=== PATIENT | female | born 1985 | race Caucasian/White ===

== ENCOUNTER 2025-07-25 06:38 | Emergency (ER) | payer OTHER, SELFPAY ==
[2025-07-25 06:42] VITALS: BP 106/66
--- NOTE | 2025-07-25 09:10 | ED.GENMED ---
History of Present Illness
General
Chief Complaint: Oral/Mouth Problem
Source: patient
Time Seen by Provider: 07/25/25 08:54
History of Present Illness
History of Present Illness:
40-year-old female with history of anxiety and ADHD presents with several days worth of worsening right upper molar pain. She has been using Tylenol and ibuprofen [id number] without any significant relief. She is using oral gel and heating
pad. She plans on seeing a dental clinic tomorrow. She has a history of significant abscess and she does not want to develop into this. No neck pain trouble swallowing or breathing. No other complaints at this time
Past History
Past History
ED Past Medical History: None
ED Past Surgical History: None
Social History
Tobacco: Non-smoker
Alcohol: None
Drug: None
Personal:
Living: with family
Phy Exam
Physical Exam
Physical Exam:
General: Well-appearing female no acute respiratory distress
HEENT normal cephalic atraumatic no trismus or drooling no obvious facial swelling. Right maxillary third molar with large cavity minimal gingival tissue inflammation surrounding this. No fluctuance. Posterior pharynx is patent.
Course
Orders/Labs/Results
Orders:
Orders
07/25/25 09:09
Oxycodone/Acetaminophen [Percocet 5/325] 1 tablet PO NOW STA
Penicillin V Potassium [Pen Vk] 500 mg PO NOW STA
Vital Signs
Initial and Last Documented VS:
Initial Vital Signs
Temp Pulse Resp BP Pulse Ox
98.5 F 83 20 106/66 100
07/25/25 06:42 07/25/25 06:42 07/25/25 06:42 07/25/25 06:42 07/25/25 06:42
Last Documented Vital Signs
Temp Pulse Resp BP Pulse Ox
98.5 F 83 20 106/66 100
07/25/25 06:42 07/25/25 06:42 07/25/25 06:42 07/25/25 06:42 07/25/25 06:42
MDM/Problems Addressed
Differential Diagnosis Includes:
Dental pain. Consider underlying dental abscess. Nothing to drain at this point. She does have a large cavity in this tooth. Grdw-sex-ldfealy medications are not helping for pain. Will add penicillin and a limited supply of pain medicine until
she sees a dentist tomorrow. No intervention otherwise indicated. Stable for discharge
*Pulse Oximetry
SaO2: 100
Oxygen Mode of Delivery: Room air
Patient hypoxic: no
*Critical Care Note
Total Time (30-74mins, 75-104mins- exclusive of procedures): Not Applicable
ED Attending Note
-
Portions of this chart may have been created with voice recognition software.� Occasional wrong word or��sound alike� substitutions may have occurred due to the inherent limitations of voice recognition software.
Discharge Plan
Departure
Patient Disposition: Home (Routine Discharge)
Date of Disposition: 07/25/25
Time of Disposition: 09:12
Patient with high blood pressure during this ER visit?: No
Discharge Problem:
Pain, dental
Instructions: Dental Pain (DC)
Prescriptions:
New
penicillin V potassium 500 mg tablet
500 mg PO QID Qty: 27 0RF
oxycodone-acetaminophen [Percocet] 5-325 mg tablet
1 tab PO Q8H PRN (Reason: Pain) Qty: 7 0RF
No Action
escitalopram oxalate 10 MG tablet
10 mg PO HS
bupropion HCl 300 MG tablet extended release 24 hr
300 mg PO DAILY
clonazepam 1 MG tablet
1 mg PO DAILYPRN PRN (Reason: anxeity)
Patient Comments:
08/26/20-patient saw md yesterday, change in direction, max in a day 2mg, patient says md told she could take a half or whole tablet during the day as needed,
08/26/20- lasted filled 08/25/20 #50
acetaminophen 325 MG tablet
650 mg PO Q4HPRN PRN (Reason: mild pain)
multivitamin with folic acid [Tab-A-Comfort] 1 TABLET tablet
1 tab PO DAILY
ciprofloxacin HCl [Cipro] 500 MG tablet
500 mg PO BID Qty: 10 0RF
metronidazole 500 MG tablet
500 mg PO Q8 Qty: 15 0RF
hyoscyamine sulfate [Levsin] 0.125 MG tablet
0.125 mg PO Q6H PRN (Reason: spasms) Qty: 20 0RF
clonazepam 1 MG tablet
1 mg PO HS Qty: 1 0RF
Activity Restrictions/Additional Instructions:
Continue warm compresses and salt water rinses. Use antibiotic and prescribed pain medicine as needed for severe pain. Follow-up with dentist as planned otherwise return if worse
Interventions
Interventions:
*Risk Screen - Suicide Last Done: 07/25/25 06:42
*General Assessment Last Done: 07/25/25 06:42
*Neglect/Abuse Screening Last Done: 07/25/25 06:42
*ED- Fall Risk Assessment Last Done: 07/25/25 06:42
*ED COVID-19 Vaccine History Last Done: 07/25/25 06:42
*ED Influenza Vaccine History Last Done: 07/25/25 06:42
Discharge Date and Time
Print Language: GUINEAN
[2025-07-25] MEDS: PERCOCET 5/325 1 TABLET PO (09:25)
[2025-07-25 09:26] VITALS: BMI 19.2
[2025-07-25] MEDS: PEN VK 500 MG PO (09:56)
[2025-07-25 09:57] VITALS: BP 96/55
== END 2025-07-25 10:00 | disposition home or self-care (01) ==
LOC: EMR 06:38
PROVIDERS: EMERGENCY PHYSICIAN Student in an Organized Health Care Education/Training Program
DX: K08.89 Other specified disorders of teeth and supporting structures (principal)
CPT/HCPCS: 99283